=== PATIENT | male | born 1985 | race Caucasian/White ===

== ENCOUNTER 2020-08-20 16:00 | Emergency (ER) | payer OTHER ==
[~2020-08-20] VITALS: Ht 177.8 cm; Wt 86.2 kg
[2020-08-20] MEDS ORDERED: NORCO 5-325 TA1 EACH PO (17:25)
== END 2020-08-20 18:24 | disposition home or self-care (01) ==
LOC: ED 16:00
PROC: 2W3CX1Z Immobilization of Right Lower Arm using Splint (ICD-10-PCS; principal; 2020-08-20)
DX: S63.501A Unspecified sprain of right wrist, initial encounter (principal); F17.200 Nicotine dependence, unspecified, uncomplicated; W19.XXXA Unspecified fall, initial encounter
CPT/HCPCS: 29125; 73130; 99283-25

== ENCOUNTER 2021-10-27 01:54 | Emergency (ER) | payer OTHER ==
[~2021-10-27] VITALS: Ht 180.3 cm; Wt 86.2 kg
[~2021-10-27 01:54] MED LIST: NORCO 5-325 TA1 EACH PO
[2021-10-27] MEDS ORDERED: HYDROCODON-ACE1 EA10 PO (02:33)
[2021-10-27] MEDS ORDERED: ONDANSETRON ODT8 MG PO (02:33)
[2021-10-27] MEDS ORDERED: IMITREX25 MG PO (02:35)
--- NOTE | 2021-10-28 15:17 | EKG ---
[facility] [address] [facility] [place] [address] Signed Sinus rhythm with marked sinus arrhythmia Otherwise normal ECG No previous ECGs available Confirmed by MARSHALL GLASS MD ([id number]) on 10/28/2021 3:16:59 PM Electronically Signed By: MARSHALL GLASS MD 10/28/21 1517 PATIENT NAME: PANTERA PEACOCK Electrocardiogram DATE OF : 81 PHYSICIAN: MARSHALL GLASS MD REPORT #: [id number] REPORT IS CONFIDENTIAL AND NOT TO BE RELEASED WITHOUT AUTHORIZATION
== END 2021-10-27 02:55 | disposition home or self-care (01) ==
LOC: ED 01:54
DX: K85.90 Acute pancreatitis without necrosis or infection, unspecified (principal); G43.909 Migraine, unspecified, not intractable, without status migrainosus; F17.200 Nicotine dependence, unspecified, uncomplicated
CPT/HCPCS: 36415; 71045; 80048; 83690; 84484; 85025; 93005; 93010; 96374; 96375; 99285-25; J1200; J1885; J2765; J7030

== ENCOUNTER 2021-10-31 13:32 | Emergency (ER) | payer OTHER ==
[~2021-10-31] VITALS: Ht 180.3 cm; Wt 86.2 kg
[~2021-10-31 13:32] MED LIST changes: +HYDROCODON-ACE1 EA10 PO; +IMITREX25 MG PO; +ONDANSETRON ODT8 MG PO
--- OUTSIDE RECORDS SUMMARY | 2021-10-31 13:40 | XMS ---
PreManage Notification: PANTERA PEACOCK [employer] Events No recent Security Events currently on file CRITERIA MET - [facility] - 2 Visits in 30 Days CARE PROVIDERS [facility] Current PHONE: Unknown Denise has no Care Guidelines for this patient. E.Efrain VISIT COUNT (12 MO[address] [facility] TOTAL 2 NOTE: Visits indicate total known visits. ED/UCC VISIT TRACKING (12 MO.) 10/31/2021 13:32 [facility] TYPE: Emergency COMPLAINT: - ABDOMINAL PAIN 10/27/2021 01:55 [facility] OR TYPE: Emergency COMPLAINT: - CHEST PAIN DIAGNOSES: - Nicotine dependence, unspecified, uncomplicated - Acute pancreatitis without necrosis or infection, unspecified - Migraine, unspecified, not intractable, without status migrainosus - Other chest pain INPATIENT VISIT TRACKING (12 MO.) No inpatient visits to display in this time frame [id number]
--- NOTE | 2021-10-31 17:28 | EKG ---
[facility] [address] [facility] [place] [address] Signed Normal sinus rhythm Normal ECG When compared with ECG of 27-OCT-2021 01:58, No significant change was found Confirmed by MARSHALL GLASS MD ([id number]) on 10/31/2021 5:28:24 PM Electronically Signed By: MARSHALL GLASS MD 10/31/21 1728 PATIENT NAME: PANTERA PEACOCK Electrocardiogram DATE OF : 81 PHYSICIAN: MARSHALL GLASS MD REPORT #: [id number] REPORT IS CONFIDENTIAL AND NOT TO BE RELEASED WITHOUT AUTHORIZATION
[2021-10-31] MEDS ORDERED: ELIQUIS5 M1 PO (19:41)
== END 2021-10-31 20:30 | disposition home or self-care (01) ==
LOC: ED 13:32
DX: I26.99 Other pulmonary embolism without acute cor pulmonale (principal); F17.200 Nicotine dependence, unspecified, uncomplicated
CPT/HCPCS: 36415; 71045; 71260; 80053; 81001; 83690; 84484; 85025; 85379; 93005; 93010; 99285-25; J1885